=== PATIENT | female | born 2000 | race American Indian/Alaskan Native ===

== ENCOUNTER 2018-09-10 11:42 | Emergency (ER) | payer OTHER ==
[2018-09-10] MEDS ORDERED: DUONEB *Not for PRN Use IH ONE (11:53)
[2018-09-10] MEDS ORDERED: DECADRON IM ONE (12:26)
--- NOTE | 2018-09-10 13:15 | Emergency Department Report ---
ED Asthma HPI - General Chief Complaint: Adult Asthma Stated Complaint: ASTHMA ATTACK Time Seen by Provider: 09/10/18 12:26 Source: patient Mode of arrival: Ambulatory Limitations: No Limitations - History of Present Illness Initial Comments: This is a 17-year-old female nontoxic, well nourished in appearance, no acute signs of distress presents to the ED with c/o of acute on chronic asthma exacerbation. Patient stated that she was in a nail salon prior to the symptoms which exacerbated symptoms. Patient denies any cough. Patient denies any sick contact. Patient denies any recent travels, long car, recent hospital stays. Patient denies any calf pain or calf tenderness. Patient denies any chest pain, short of breath, fever, chills, nausea, vomiting, hemoptysis, numbness, tingling, headache or stiff neck. Past medical history includes asthma. Patient denies any allergies. MD Complaint: wheezing -: This morning Asthma History: childhood onset Severity: mild Context: none known Associated Symptoms: none. denies: productive cough, dry cough, fever, chest pain, hemoptysis, leg edema, syncope - Related Data Previous Rx's Medication Instructions Recorded Last Taken Type ALBUTEROL Inhaler(NF) [VENTOLIN 1 puff IH Q4-6H PRN #1 inha 09/10/18 Unknown Rx Inhaler(NF)] Prednisone [predniSONE 10 mg 10 mg PO .TAPER #1 tab.ds.pk 09/10/18 Unknown Rx (6-Day Pack, 21 Tabs)] Allergies Allergy/AdvReac Type Severity Reaction Status Date / Time No Known Allergies Allergy Verified 09/10/18 12:26 ED Review of Systems ROS: Stated complaint: ASTHMA ATTACK Other details as noted in HPI Constitutional: denies: chills, fever Eyes: denies: eye pain, eye discharge, vision change ENT: denies: ear pain, throat pain Respiratory: wheezing. denies: cough, shortness of breath Cardiovascular: denies: chest pain, palpitations Endocrine: no symptoms reported Gastrointestinal: denies: abdominal pain, nausea, diarrhea Genitourinary: denies: urgency, dysuria, discharge Musculoskeletal: denies: back pain, joint swelling, arthralgia Skin: denies: rash, lesions Neurological: denies: headache, weakness, paresthesias Psychiatric: denies: anxiety, depression Hematological/Lymphatic: denies: easy bleeding, easy bruising ED Past Medical Hx - Past Medical History Previous Medical History?: Yes Hx Asthma: Yes - Surgical History Past Surgical History?: No - Social History Smoking Status: Current Every Day Smoker Substance Use Type: None - Medications Home Medications: Home Medications Medication Instructions Recorded Confirmed Last Taken Type ALBUTEROL Inhaler(NF) [VENTOLIN 1 puff IH Q4-6H PRN #1 inha 09/10/18 Unknown Rx Inhaler(NF)] Prednisone [predniSONE 10 mg 10 mg PO .TAPER #1 tab.ds.pk 09/10/18 Unknown Rx (6-Day Pack, 21 Tabs)] ED Physical Exam - General Limitations: No Limitations General appearance: alert, in no apparent distress - Head Head exam: Present: atraumatic, normocephalic - Eye Eye exam: Present: normal appearance - Neck Neck exam: Present: normal inspection, full ROM - Respiratory Respiratory exam: Present: normal lung sounds bilaterally, wheezes (bilateral upper and lower lobes). Absent: respiratory distress, rales, rhonchi, stridor, chest wall tenderness, accessory muscle use, decreased breath sounds, prolonged expiratory - Cardiovascular Cardiovascular Exam: Present: regular rate, normal rhythm, normal heart sounds - Extremities Exam Extremities exam: Present: normal inspection, full ROM, normal capillary refill - Back Exam Back exam: Present: normal inspection, full ROM - Neurological Exam Neurological exam: Present: alert, oriented X3 - Psychiatric Psychiatric exam: Present: normal affect, normal mood - Skin Skin exam: Present: warm, dry, intact, normal color. Absent: rash ED Course Vital Signs 09/10/18 11:50 Temperature 98.6 F Pulse Rate 114 H Respiratory 20 Rate Blood Pressure 163/92 O2 Sat by Pulse 95 Oximetry - Reevaluation(s) Reevaluation #1: 09/10/18 13:17 Patient is speaking in full sentences with no signs of distress noted. ED Medical Decision Making - Medical Decision Making This is a 17-year-old female that presents with asthma exacerbation. Patient is stable and was examined by me. Chest x-ray has been obtained and dictated by the radiologist within normal limits. Patient is notified of the x-ray report with no questions noted by the patient. Patient did receive DuoNeb and steroids in the ED which patient the symptoms has resolved and subsided. Posttreatment and there is no wheezing upon auscultation. Patient is discharged with albuterol and prednisone. Patient was referred to Follow-up with a primary care doctor in 3-5 days or if symptoms worsen and continue return to emergency room as soon as possible. At time of discharge, the patient does not seem toxic or ill in appearance. No acute signs of distress noted. Patient agrees to [facility] treatment plan of care. No further questions noted by the patient. This chart is dictated with using [employer] Critical care attestation.: If time is entered above; I have spent that time in minutes in the direct care of this critically ill patient, excluding procedure time. ED Disposition Clinical Impression: Asthma exacerbation Qualifiers: Asthma severity: mild Asthma persistence: intermittent Qualified Code(s): J45.21 - Mild intermittent asthma with (acute) exacerbation Disposition: TO HOME OR SELFCARE Is pt being admited?: No Does the pt Need Aspirin: No Condition: Stable Instructions: Asthma (ED) Additional Instructions: Follow-up with a primary care doctor in 3-5 days or if symptoms worsen and continue return to emergency room as soon as possible. Prescriptions: ALBUTEROL Inhaler(NF) [VENTOLIN Inhaler(NF)] 1 puff IH Q4-6H PRN #1 inha PRN Reason: Wheezing Prednisone [predniSONE 10 mg (6-Day Pack, 21 Tabs)] 10 mg PO .TAPER #1 tab.ds.pk Referrals: PRIMARY CARE, [Primary Care Provider] - 3-5 Days ELISA KIRK MD [Staff Physician] - 3-5 Days [facility] [Outside] - 3-5 Days [facility] [Outside] - 3-5 Days Forms: Work/School Release Form(ED)
[2018-09-10 13:28] VITALS: BP 127/77
--- NOTE | 2018-09-10 13:29 | XRay Report ---
ROUTINE CHEST, TWO VIEWS: HISTORY: Wheezing. The trachea, heart, mediastinal contour, lung marley and bony thorax are unremarkable. IMPRESSION: Unremarkable chest x-ray.
== END 2018-09-10 13:47 | disposition home or self-care (01) ==
LOC: ED 11:42
DX: J45.901 Unspecified asthma with (acute) exacerbation (principal); F17.200 Nicotine dependence, unspecified, uncomplicated
CPT/HCPCS: 71046; 94640; 96372; 99284; J1100

== ENCOUNTER 2019-03-01 19:09 | Emergency (ER) | payer OTHER ==
--- NOTE | 2019-03-01 20:12 | Emergency Department Report ---
Blank Doc - Documentation Documentation: This is a 18-year-old female that presents with sore throat and nausea with ab dominal cramping. This initial assessment/diagnostic orders/clinical plan/treatment(s) is/are subject to change based on patient's health status, clinical progression and re- assessment by fellow clinical providers in the ED. Further treatment and workup at subsequent clinical providers discretion. Patient/guardians urged not to elope from the ED as their condition may be serious if not clinically assessed and managed. Initial orders include: 1- Patient sent to [facility] for further evaluation and treatment. 2- strep swab 3- UA
[2019-03-01 20:16] VITALS: BP 118/78
[2019-03-01 22:06] LABS: HCG Qualitative,Urine Negative (Negative)
[2019-03-01 22:11] LABS: Bilirubin,Urine NEG (Negative); Blood,Urine MOD (Negative); Color,Urine Yellow (Yellow); Mucus,Urine FEW /HPF; Protein,Urine <15 mg/dL mg/dL (Negative); Urobilinogen,Urine < 2.0 mg/dL (<2.0)
[2019-03-02] MEDS ORDERED: LIDOCAINE VISCOUS 2% PO ONE (00:01)
[2019-03-02] MEDS ORDERED: ZOFRAN ODT PO ONE (00:02)
[2019-03-02] MEDS ORDERED: DELTASONE PO ONE (00:02)
[2019-03-02] MEDS ORDERED: IBUPROFEN PO ONE (00:02)
--- NOTE | 2019-03-02 00:31 | Emergency Department Report ---
ED General Adult HPI - General Chief complaint: Sore Throat Stated complaint: LIGHT HEADED/NAUSEA/SORE THROAT Time Seen by Provider: 03/01/19 20:11 Source: patient Mode of arrival: Ambulatory Limitations: No Limitations - History of Present Illness Initial comments: Patient is a 18-year-old -[place] female with no past medical history presents to the ED with complaint of acute onset persistent severe sore throat with dysphagia for the last 12 hours. Patient states that she has also had persistent diffuse body aches and lack of appetite with a headache. Patient denies chest pain, shortness of breath, cough, fever, chills, dizziness, headache, abdominal pain, dysuria, urinary frequency and urgency or nasal and sinus congestion. MD Complaint: SORE THROAT -: Sudden, hour(s) (12) Location: mouth Radiation: non-radiation Severity scale (0 -10): 5 Quality: aching, sharp Consistency: constant Improves with: none Worsens with: none, eating Associated Symptoms: denies: confusion, chest pain, cough, diaphoresis, fever/chills, headaches, loss of appetite, malaise, nausea/vomiting, shortness of breath, syncope, other Treatments Prior to Arrival: none - Related Data Previous Rx's Medication Instructions Recorded Last Taken Type ALBUTEROL Inhaler(NF) [VENTOLIN 1 puff IH Q4-6H PRN #1 inha 09/10/18 Unknown Rx Inhaler(NF)] Prednisone [predniSONE 10 mg 10 mg PO .TAPER #1 tab.ds.pk 09/10/18 Unknown Rx (6-Day Pack, 21 Tabs)] ALBUTEROL Inhaler (OR & NICU) 1 - 2 puff IH Q4H PRN #1 inha 03/02/19 Unknown Rx [ProAir HFA Inhaler] Azithromycin [Zithromax Z-CONSTANZA] 250 mg PO DAILY #6 tablet 03/02/19 Unknown Rx Ibuprofen [Motrin] 800 mg PO Q8HR PRN #20 tablet 03/02/19 Unknown Rx Lidocaine Viscous 2% 10 ml PO Q6H PRN #120 ml 03/02/19 Unknown Rx predniSONE [Deltasone] 60 mg PO DAILY #15 tablet 03/02/19 Unknown Rx Allergies Allergy/AdvReac Type Severity Reaction Status Date / Time No Known Allergies Allergy Verified 09/10/18 12:26 ED Review of Systems ROS: Stated complaint: LIGHT HEADED/NAUSEA/SORE THROAT Other details as noted in HPI Comment: All other systems reviewed and negative Constitutional: denies: chills, fever Eyes: denies: eye pain, eye discharge, vision change ENT: throat pain. denies: ear pain Respiratory: denies: cough, shortness of breath, wheezing Cardiovascular: denies: chest pain, palpitations Endocrine: no symptoms reported Gastrointestinal: denies: abdominal pain, nausea, diarrhea Genitourinary: denies: urgency, dysuria, discharge Musculoskeletal: denies: back pain, joint swelling, arthralgia Skin: denies: rash, lesions Neurological: denies: headache, weakness, paresthesias Psychiatric: denies: anxiety, depression Hematological/Lymphatic: denies: easy bleeding, easy bruising ED Past Medical Hx - Past Medical History Previous Medical History?: Yes Hx Asthma: Yes - Surgical History Past Surgical History?: Yes Additional Surgical History: Left eye Ptosis - Social History Smoking Status: Never Smoker Substance Use Type: None - Medications Home Medications: Home Medications Medication Instructions Recorded Confirmed Last Taken Type ALBUTEROL Inhaler(NF) [VENTOLIN 1 puff IH Q4-6H PRN #1 inha 09/10/18 Unknown Rx Inhaler(NF)] Prednisone [predniSONE 10 mg 10 mg PO .TAPER #1 tab.ds.pk 09/10/18 Unknown Rx (6-Day Pack, 21 Tabs)] ALBUTEROL Inhaler (OR & NICU) 1 - 2 puff IH Q4H PRN #1 inha 03/02/19 Unknown Rx [ProAir HFA Inhaler] Azithromycin [Zithromax Z-CONSTANZA] 250 mg PO DAILY #6 tablet 03/02/19 Unknown Rx Ibuprofen [Motrin] 800 mg PO Q8HR PRN #20 tablet 03/02/19 Unknown Rx Lidocaine Viscous 2% 10 ml PO Q6H PRN #120 ml 03/02/19 Unknown Rx predniSONE [Deltasone] 60 mg PO DAILY #15 tablet 03/02/19 Unknown Rx ED Physical Exam - General Limitations: No Limitations General appearance: alert, in no apparent distress - Head Head exam: Present: atraumatic, normocephalic, normal inspection - Eye Eye exam: Present: normal appearance, PERRL, EOMI - ENT ENT exam: Present: normal exam, mucous membranes moist, TM's normal bilaterally, normal external ear exam, other (Mildly erythematous oropharyngeal area with exudates) - Neck Neck exam: Present: normal inspection, full ROM, lymphadenopathy - Respiratory Respiratory exam: Present: normal lung sounds bilaterally. Absent: respiratory distress, wheezes, rhonchi, chest wall tenderness, accessory muscle use, decreased breath sounds, prolonged expiratory - Cardiovascular Cardiovascular Exam: Present: regular rate, normal rhythm, normal heart sounds. Absent: systolic murmur, diastolic murmur, rubs, gallop - GI/Abdominal GI/Abdominal exam: Present: soft, normal bowel sounds. Absent: tenderness, guarding, rebound, rigid, hyperactive bowel sounds, hypoactive bowel sounds, organomegaly - Rectal Rectal exam: Present: deferred - Extremities Exam Extremities exam: Present: normal inspection, full ROM, normal capillary refill - Back Exam Back exam: Present: normal inspection. Absent: full ROM, tenderness, CVA tenderness (R), CVA tenderness (L), muscle spasm, vertebral tenderness - Neurological Exam Neurological exam: Present: alert, oriented X3, CN II-XII intact, normal gait, reflexes normal - Psychiatric Psychiatric exam: Present: normal affect, normal mood - Skin Skin exam: Present: warm, dry, intact, normal color. Absent: rash ED Course Vital Signs 03/01/19 20:11 Temperature 98.9 F Pulse Rate 83 Respiratory 18 Rate Blood Pressure 118/78 O2 Sat by Pulse 99 Oximetry - Reevaluation(s) Reevaluation #1: 03/02/19 00:35 Patient is alert and oriented 3 and is not in distress. Patient was treated for pain in the ED and urinalysis is unremarkable. Patient discharged home on medications and advised to follow up with her primary care physician in 5-7 days for reevaluation or return to the ED immediately if symptoms get worse. ED Medical Decision Making - Medical Decision Making Patient is alert and oriented 3 and is not in distress. Patient was treated for pain in the ED and urinalysis is unremarkable. Patient discharged home on medications and advised to follow up with her primary care physician in 5-7 days for reevaluation or return to the ED immediately if symptoms get worse. Patient was discharged home on an empiric treatment for tonsillitis and acute pharyngitis. - Differential Diagnosis Acute pharyngitis; Acute tonsillitis; Strep pharyngitis Critical care attestation.: If time is entered above; I have spent that time in minutes in the direct care of this critically ill patient, excluding procedure time. ED Disposition Clinical Impression: Acute pharyngitis Qualifiers: Pharyngitis/tonsillitis etiology: unspecified etiology Qualified Code(s): J02.9 - Acute pharyngitis, unspecified Acute tonsillitis Qualifiers: Pharyngitis/tonsillitis etiology: unspecified etiology Qualified Code(s): J03.90 - Acute tonsillitis, unspecified Disposition: TO HOME OR SELFCARE Is pt being admited?: No Does the pt Need Aspirin: No Condition: Stable Instructions: Tonsillitis (ED), Pharyngitis (ED) Additional Instructions: Take medications with food, drink plenty of fluids and follow up with your primary care physician in 5-7 days for reevaluation. Return to the ED immediately if symptoms get worse. Prescriptions: predniSONE [Deltasone] 60 mg PO DAILY #15 tablet Lidocaine Viscous 2% 10 ml PO Q6H PRN #120 ml PRN Reason: Pain , Severe (7-10) Ibuprofen [Motrin] 800 mg PO Q8HR PRN #20 tablet PRN Reason: Pain , Severe (7-10) ALBUTEROL Inhaler (OR & NICU) [ProAir HFA Inhaler] 1 - 2 puff IH Q4H PRN #1 inha PRN Reason: Dyspnea Azithromycin [Zithromax Z-CONSTANZA] 250 mg PO DAILY #6 tablet Referrals: [facility] [Outside] - 3-5 Days Forms: Work/School Release Form(ED) Time of Disposition: 00:30 Print Language: BERMUDIAN
== END 2019-03-02 01:00 | disposition home or self-care (01) ==
LOC: ED 19:09
DX: J03.90 Acute tonsillitis, unspecified (principal); J45.909 Unspecified asthma, uncomplicated; R63.0 Anorexia; M79.10 Myalgia, unspecified site; R51 Headache; Z79.899 Other long term (current) drug therapy
CPT/HCPCS: 81001; 81025; 99283; J7512; Q0162

== ENCOUNTER 2019-05-28 16:30 | Emergency (ER) | payer OTHER ==
--- NOTE | 2019-05-28 16:57 | Event Note ---
ED Screening Note Date of service: 05/28/19 Time: 16:56 ED Screening Note: This is a 18 y.o. F. that presents to the ER with SOB. Patient states when the seasons change her asthma flare. Increased use of inhaler and ran out yesterday. Requesting refills as well. This initial assessment/diagnostic orders/clinical plan/treatment(s) is/are subject to change based on patients health status, clinical progression and re- assessment by fellow clinical providers in the ED. Further treatment and workup at subsequent clinical providers discretion. Patient/guardian urged not to elope from the ED as their condition may be serious if not clinically assessed and managed. Initial orders include:
[2019-05-28 16:58] VITALS: BP 119/56
--- NOTE | 2019-05-28 17:16 | Emergency Department Report ---
ED Recheck HPI - General Chief Complaint: Medical Clearance Stated Complaint: STEVE/ASTHMA RELATED Time Seen by Provider: 05/28/19 16:55 Source: patient Mode of arrival: Ambulatory Limitations: No Limitations - History of Present Illness Initial Comments: 18 YO AA FEMALE COMES IN FOR VENTOLIN INHALER REFILL. NO COMPLAINTS. NO WHEEZING. NO FEVER MD Complaint: medication refill request - Related Data Previous Rx's Medication Instructions Recorded Last Taken Type ALBUTEROL Inhaler(NF) [VENTOLIN 1 puff IH Q4-6H PRN #1 inha 09/10/18 Unknown Rx Inhaler(NF)] Prednisone [predniSONE 10 mg 10 mg PO .TAPER #1 tab.ds.pk 09/10/18 Unknown Rx (6-Day Pack, 21 Tabs)] ALBUTEROL Inhaler (OR & NICU) 1 - 2 puff IH Q4H PRN #1 inha 03/02/19 Unknown Rx [ProAir HFA Inhaler] Ibuprofen [Motrin] 800 mg PO Q8HR PRN #20 tablet 03/02/19 Unknown Rx Lidocaine Viscous 2% 10 ml PO Q6H PRN #120 ml 03/02/19 Unknown Rx predniSONE [Deltasone] 60 mg PO DAILY #15 tablet 03/02/19 Unknown Rx Albuterol Sulfate [Proair 90 mcg IH QID PRN #1 aer.pow.ba 05/28/19 Unknown Rx Respiclick] Allergies Allergy/AdvReac Type Severity Reaction Status Date / Time No Known Allergies Allergy Verified 09/10/18 12:26 ED Review of Systems ROS: Stated complaint: STEVE/ASTHMA RELATED Other details as noted in HPI Comment: All other systems reviewed and negative ED Past Medical Hx - Past Medical History Previous Medical History?: Yes Hx Asthma: Yes - Surgical History Past Surgical History?: No Additional Surgical History: Left eye Ptosis - Family History Family history: no significant - Social History Smoking Status: Never Smoker Substance Use Type: None - Medications Home Medications: Home Medications Medication Instructions Recorded Confirmed Last Taken Type ALBUTEROL Inhaler(NF) [VENTOLIN 1 puff IH Q4-6H PRN #1 inha 09/10/18 Unknown Rx Inhaler(NF)] Prednisone [predniSONE 10 mg 10 mg PO .TAPER #1 tab.ds.pk 09/10/18 Unknown Rx (6-Day Pack, 21 Tabs)] ALBUTEROL Inhaler (OR & NICU) 1 - 2 puff IH Q4H PRN #1 inha 03/02/19 Unknown Rx [ProAir HFA Inhaler] Ibuprofen [Motrin] 800 mg PO Q8HR PRN #20 tablet 03/02/19 Unknown Rx Lidocaine Viscous 2% 10 ml PO Q6H PRN #120 ml 03/02/19 Unknown Rx predniSONE [Deltasone] 60 mg PO DAILY #15 tablet 03/02/19 Unknown Rx Albuterol Sulfate [Proair 90 mcg IH QID PRN #1 aer.pow.ba 05/28/19 Unknown Rx Respiclick] ED Physical Exam - General Limitations: No Limitations General appearance: alert - Head Head exam: Present: normocephalic - Eye Eye exam: Present: normal appearance - ENT ENT exam: Present: mucous membranes moist - Respiratory Respiratory exam: Present: normal lung sounds bilaterally ED Course Vital Signs 05/28/19 16:56 Temperature 98.6 F Pulse Rate 82 Respiratory 16 Rate Blood Pressure 119/56 [Left] O2 Sat by Pulse 99 Oximetry ED Recheck MDM - Differential Diagnosis Prescription Refill(s) - Medical Decision Making REFILL FOR ALBUTEROL REFERRAL TO PCP AND OBGYN Vital Signs 05/28/19 16:56 Temperature 98.6 F Pulse Rate 82 Respiratory 16 Rate Blood Pressure 119/56 [Left] O2 Sat by Pulse 99 Oximetry Critical care attestation.: If time is entered above; I have spent that time in minutes in the direct care of this critically ill patient, excluding procedure time. ED Disposition Clinical Impression: Medication refill, History of asthma Disposition: DC- TO HOME OR SELFCARE Is pt being admited?: No Does the pt Need Aspirin: No Condition: Stable Additional Instructions: FOLLOW UP WITH PCP AND OBGYN Prescriptions: Albuterol Sulfate [Proair Respiclick] 90 mcg IH QID PRN #1 aer.pow.ba PRN Reason: Wheezing Referrals: BEN VANESSA MD [Staff Physician] - 3-5 Days LEONOR ABREU MD [Staff Physician] - 3-5 Days Time of Disposition: 17:14
== END 2019-05-28 17:15 | disposition home or self-care (01) ==
LOC: ED 16:30
DX: J45.909 Unspecified asthma, uncomplicated (principal); Z76.0 Encounter for issue of repeat prescription; Z79.899 Other long term (current) drug therapy; Z98.890 Other specified postprocedural states
CPT/HCPCS: 99282

== ENCOUNTER 2019-09-21 14:05 | Emergency (ER) | payer OTHER ==
--- NOTE | 2019-09-21 16:14 | Event Note ---
ED Screening Note Date of service: 09/21/19 Time: 16:14 ED Screening Note: 18 y o f presents for medication refill on her inhaler stating she ran out of her in haler she denies sob, cough, fever or any other symptoms This initial assessment/diagnostic orders/clinical plan/treatment(s) is/are mueller bject to change based on patients health status, clinical progression and re- assessment by fellow clinical providers in the ED. Further treatment and workup at subsequent clinical providers discretion. Patient/guardian urged not to elope from the ED as their condition may be serious if not clinically assessed and managed. Initial orders include: Pt presents with a non-medical emergency Examination is normal, Vital sign are stable Pt given information for clinics to follow up with pcp for further treatment and evaluation Also discussed strict return precautions in detail with pt who verbalized understanding
[2019-09-21 16:35] VITALS: BP 136/81
== END 2019-09-21 16:35 | disposition left against medical advice (07) ==
LOC: ED 14:05
DX: J44.9 Chronic obstructive pulmonary disease, unspecified (principal); Z76.0 Encounter for issue of repeat prescription
CPT/HCPCS: 99282

== ENCOUNTER 2019-10-16 12:34 | Emergency (ER) | payer SELFPAY ==
--- NOTE | 2019-10-16 13:01 | Event Note ---
ED Screening Note ED Screening Note: possible groin abscess This initial assessment/diagnostic orders/clinical plan/treatment(s) is/are subject to change based on patients health status, clinical progression and re- assessment by fellow clinical providers in the ED. Further treatment and workup at subsequent clinical providers discretion. Patient/guardian urged not to elope from the ED as their condition may be serious if not clinically assessed and managed. Initial orders include: needs assessement
--- NOTE | 2019-10-16 19:40 | Emergency Department Report ---
Chief Complaint: Pain General Stated Complaint: PELVIC/LT THIGH PAIN Time Seen by Provider: 10/16/19 19:11 - HPI History of Present Illness: 18-year-old -[place] female presents to the emergency room for left inguinal pain for 2 to 3 weeks. Patient reports that the left groin pain has worsened when she walks. Patient denies any vaginal discharge no vaginal bleeding no URI symptoms. Denies any fever chills nausea vomiting. - Exam Vital Signs: Vital Signs 10/16/19 12:40 Temperature 98.7 F Pulse Rate 67 Respiratory 16 Rate Blood Pressure 125/67 O2 Sat by Pulse 98 Oximetry Physical Exam: Patient is alert and oriented x3 no acute distress nontoxic in appearance. left side lymphadenopathy with tenderness. MSE screening note: Focused history and physical exam performed. Due to findings the following was ordered: 18-year-old -[place] female presents to the emergency room for left inguinal pain for 2 to 3 weeks. Patient reports that the left groin pain has worsened when she walks. Patient denies any vaginal discharge no vaginal bleeding no URI symptoms. Discussed the patient states that inguinal lymphadenopathy on the left side. I discussed with patient that she can take ibuprofen or Aleve for pain management. Also discussed with patient she can follow-up with a primary care provider or [facility] [employer] [facility] provider. ED Disposition for MSE Clinical Impression: Inguinal lymphadenopathy Disposition: Z-07 MED SCREENING EXAM-LEFT Is pt being admited?: No Does the pt Need Aspirin: No Condition: Stable Instructions: Lymphadenopathy (ED) Additional Instructions: You can take Tylenol or ibuprofen or even Aleve for pain management. I recommend for you to follow-up with your [facility] [facility] or primary care provider. Referrals: PRIMARY CAREMD [Primary Care Provider] - 3-5 Days SHAQ KUMAR MD [Staff Physician] - 3-5 Days [facility] [Provider Group] - 3-5 Days [facility] [Provider Group] - 3-5 Days Forms: Work/School Release Form(ED)
[2019-10-16 20:02] VITALS: BP 121/68
== END 2019-10-16 20:02 | disposition left against medical advice (07) ==
LOC: ED 12:34
DX: R59.1 Generalized enlarged lymph nodes (principal)
CPT/HCPCS: 99282

== ENCOUNTER 2020-08-07 09:34 | Emergency (ER) | payer SELFPAY ==
[2020-08-07 09:51] VITALS: BP 118/60
[2020-08-07] MEDS ORDERED: DIPHtheria,PERTUSSIS(ACELL),TETANUS VACCINE/PF 0.5 ML VIAL IM ONE (10:36)
--- NOTE | 2020-08-07 10:47 | Emergency Department Report ---
- General Chief complaint: Skin/Abscess/Foreign Body Stated complaint: INFECTED TATTOO Time Seen by Provider: 08/07/20 10:36 Source: patient Mode of arrival: Ambulatory Limitations: No Limitations - History of Present Illness Initial comments: Patient is a 19-year-old female presents emergency room with complaints of a possible infection of her new tattoo. She states that she got the tattoo on July 31 to the left lateral ankle. She states that she did watch them get a new needle out of the pack and she reports that they sanitized everything. She states over the last few days the tattoo began to scab over, she began seeing drainage, she had a small amount of swelling present. She states that she has been using A&D ointment. She is unsure of her last tetanus immu nization. She denies any fever, vomiting, diarrhea, chills, difficulty walking. She is amatory without difficulty. She has a past medical history of asthma. Allergies to medications. Last menstrual cycle 07/22/2020. - Related Data Previous Rx's Medication Instructions Recorded Last Taken Type ALBUTEROL Inhaler(NF) [VENTOLIN 1 puff IH Q4-6H PRN #1 inha 09/10/18 Unknown Rx Inhaler(NF)] Prednisone [predniSONE 10 mg 10 mg PO .TAPER #1 tab.ds.pk 09/10/18 Unknown Rx (6-Day Pack, 21 Tabs)] Albuterol Mdi (or & Nicu Only) 1 - 2 puff IH Q4H PRN #1 inha 03/02/19 Unknown Rx [ProAir HFA Inhaler] Ibuprofen [Motrin] 800 mg PO Q8HR PRN #20 tablet 03/02/19 Unknown Rx Lidocaine Viscous 2% 10 ml PO Q6H PRN #120 ml 03/02/19 Unknown Rx predniSONE [Deltasone] 60 mg PO DAILY #15 tablet 03/02/19 Unknown Rx Albuterol Sulfate [Proair 90 mcg IH QID PRN #1 aer.pow.ba 05/28/19 Unknown Rx Respiclick] Mupirocin [Bactroban 2% OINT] 1 applic TP TID #1 tube 08/07/20 Unknown Rx Sulfamethoxazole/Trimethoprim 1 each PO BID 7 Days #14 tablet 08/07/20 Unknown Rx [Bactrim DS TAB] Allergies Allergy/AdvReac Type Severity Reaction Status Date / Time No Known Allergies Allergy Verified 09/10/18 12:26 Abscess Boil HPI - HPI Chief Complaint: Skin/Abscess/Foreign Body Stated Complaint: INFECTED TATTOO Time Seen by Provider: 08/07/20 10:36 Home Medications: Previous Rx's Medication Instructions Recorded Last Taken Type ALBUTEROL Inhaler(NF) [VENTOLIN 1 puff IH Q4-6H PRN #1 inha 09/10/18 Unknown Rx Inhaler(NF)] Prednisone [predniSONE 10 mg 10 mg PO .TAPER #1 tab.ds.pk 09/10/18 Unknown Rx (6-Day Pack, 21 Tabs)] Albuterol Mdi (or & Nicu Only) 1 - 2 puff IH Q4H PRN #1 inha 03/02/19 Unknown Rx [ProAir HFA Inhaler] Ibuprofen [Motrin] 800 mg PO Q8HR PRN #20 tablet 03/02/19 Unknown Rx Lidocaine Viscous 2% 10 ml PO Q6H PRN #120 ml 03/02/19 Unknown Rx predniSONE [Deltasone] 60 mg PO DAILY #15 tablet 03/02/19 Unknown Rx Albuterol Sulfate [Proair 90 mcg IH QID PRN #1 aer.pow.ba 05/28/19 Unknown Rx Respiclick] Mupirocin [Bactroban 2% OINT] 1 applic TP TID #1 tube 08/07/20 Unknown Rx Sulfamethoxazole/Trimethoprim 1 each PO BID 7 Days #14 tablet 08/07/20 Unknown Rx [Bactrim DS TAB] Allergies/Adverse Reactions: Allergies Allergy/AdvReac Type Severity Reaction Status Date / Time No Known Allergies Allergy Verified 09/10/18 12:26 ED Review of Systems ROS: Stated complaint: INFECTED TATTOO Other details as noted in HPI Comment: All other systems reviewed and negative ED Past Medical Hx - Past Medical History Previous Medical History?: Yes Hx Asthma: Yes - Surgical History Additional Surgical History: Left eye Ptosis - Social History Smoking Status: Never Smoker - Medications Home Medications: Home Medications Medication Instructions Recorded Confirmed Last Taken Type ALBUTEROL Inhaler(NF) [VENTOLIN 1 puff IH Q4-6H PRN #1 inha 09/10/18 Unknown Rx Inhaler(NF)] Prednisone [predniSONE 10 mg 10 mg PO .TAPER #1 tab.ds.pk 09/10/18 Unknown Rx (6-Day Pack, 21 Tabs)] Albuterol Mdi (or & Nicu Only) 1 - 2 puff IH Q4H PRN #1 inha 03/02/19 Unknown Rx [ProAir HFA Inhaler] Ibuprofen [Motrin] 800 mg PO Q8HR PRN #20 tablet 03/02/19 Unknown Rx Lidocaine Viscous 2% 10 ml PO Q6H PRN #120 ml 03/02/19 Unknown Rx predniSONE [Deltasone] 60 mg PO DAILY #15 tablet 03/02/19 Unknown Rx Albuterol Sulfate [Proair 90 mcg IH QID PRN #1 aer.pow.ba 05/28/19 Unknown Rx Respiclick] Mupirocin [Bactroban 2% OINT] 1 applic TP TID #1 tube 08/07/20 Unknown Rx Sulfamethoxazole/Trimethoprim 1 each PO BID 7 Days #14 tablet 08/07/20 Unknown Rx [Bactrim DS TAB] ED Physical Exam - General Limitations: No Limitations General appearance: alert, in no apparent distress - Head Head exam: Present: atraumatic, normocephalic - Eye Eye exam: Present: normal appearance - ENT ENT exam: Present: mucous membranes moist - Respiratory Respiratory exam: Absent: respiratory distress, accessory muscle use - Neurological Exam Neurological exam: Present: alert, oriented X3 - Psychiatric Psychiatric exam: Present: normal affect, normal mood - Skin Skin exam: Present: warm, dry, other (there is a tattoo present to the left lateral ankle that is entirely scabbed over, no drainge at this time, no fluctuance, there is a 2 cm area of surrounding erythema, edema, and increased warmth, no blistering, no skin denuding, no necrosis, neurovasculalry intact, FROM of the LLE) ED Course Vital Signs 08/07/20 09:49 Temperature 99.3 F Pulse Rate 85 Respiratory 16 Rate Blood Pressure 118/60 O2 Sat by Pulse 98 Oximetry ED Medical Decision Making - Medical Decision Making Patient is a 19-year-old female presents emergency room with complaints of a possible infection of her new tattoo. She states that she got the tattoo on July 31 to the left lateral ankle. She states that she did watch them get a new needle out of the pack and she reports that they sanitized everything. She states over the last few days the tattoo began to scab over, she began seeing drainage, she had a small amount of swelling present. She states that she has been using A&D ointment. She is unsure of her last tetanus immunization. She denies any fever, vomiting, diarrhea, chills, difficulty walking. She is amatory without difficulty. She has a past medical history of asthma. Allergies to medications. Last menstrual cycle 07/22/2020. vitals are normal. on exam:there is a tattoo present to the left lateral ankle that is entirely scabbed over, no drainge at this time, no fluctuance, there is a 2 cm area of surrounding erythema, edema, and increased warmth, no blistering, no skin denuding, no necrosis, neurovasculalry intact, FROM of the LLE. Examination appears consistent with cellulitis, no signs of drainable abscess at this time. Patient given Tdap while in the emergency department. Patient given prescription for Bactrim and mupirocin ointment. Advised patient Please use medication as prescribed. Wash with antibacterial soap and water twice a day and pat dry. No hot tub, no pool. Follow-up with your primary care doctor in the next 3 days for reexamination. Return to emergency room for any new or worsening symptoms. Critical care attestation.: If time is entered above; I have spent that time in minutes in the direct care o f this critically ill patient, excluding procedure time. ED Disposition Clinical Impression: Cellulitis Qualifiers: Site of cellulitis: extremity Site of cellulitis of extremity: lower extremity Laterality: left Qualified Code(s): L03.116 - Cellulitis of left lower limb Disposition: - TO HOME OR SELFCARE Is pt being admited?: No Does the pt Need Aspirin: No Condition: Stable Instructions: Cellulitis, Adult Additional Instructions: Please use medication as prescribed. Wash with antibacterial soap and water twice a day and pat dry. No hot tub, no pool. Follow-up with your primary care doctor in the next 3 days for reexamination. Return to emergency room for any new or worsening symptoms. Prescriptions: Sulfamethoxazole/Trimethoprim [Bactrim DS TAB] 1 each PO BID 7 Days #14 tablet Mupirocin [Bactroban 2% OINT] 1 applic TP TID #1 tube Referrals: PRIMARY CARE, [Primary Care Provider] - 2-3 Days SHAQ KUMAR MD [Staff Physician] - 2-3 Days [facility] [Provider Group] - 2-3 Days [facility], [LAB/CONTRACT] - 2-3 Days Time of Disposition: 10:46 Print Language: [place]
== END 2020-08-07 10:59 | disposition home or self-care (01) ==
LOC: ED 09:34
DX: L03.116 Cellulitis of left lower limb (principal)
CPT/HCPCS: 90471; 90715; 99282